=== PATIENT | female | born 1945 | race Caucasian/White ===

== ENCOUNTER 2017-11-23 20:51 | Emergency (ER) | payer OTHER ==
[~2017-11-23] VITALS: Ht 170.2 cm; Wt 65.8 kg
[2017-11-23] MEDS ORDERED: OMEPRAZOLE20 M1 (21:18)
[2017-11-23] MEDS ORDERED: TAMS0.4C (21:18)
[2017-11-23] MEDS ORDERED: PROSCAR5 MG (21:18)
[2017-11-23] MEDS ORDERED: LISINOPRIL2.5 MG (21:18)
[2017-11-23] MEDS ORDERED: METFORMIN HCL850 MG (21:19)
== END 2017-11-23 22:16 | disposition home or self-care (01) ==
LOC: ER 20:51
DX: R09.81 Nasal congestion (principal)